=== PATIENT | male | born 1975 | race Caucasian/White ===

== ENCOUNTER 2016-06-03 22:20 | Emergency (ER) | payer OTHER ==
[2016-06-03] MEDS ORDERED: HYDROmorphone 1 MG/ML 1 ML SYRINGE IVP STA (23:14)
[2016-06-03] MEDS ORDERED: SODIUM CHLORIDE 0.9% 1,000 ML IV ONE (23:14)
--- NOTE | 2016-06-03 23:20 | ED ---
Abdominal Pain HPI - General Chief Complaint: Abdominal Pain Stated Complaint: Abdominal Pain Time Seen by Provider: 06/03/16 22:39 Source: patient, RN notes reviewed Mode of arrival: ambulatory Limitations: no limitations - History of Present Illness Initial Comments: Patient is a 41-year-old male presents to the emergency room for evaluation of abdominal pain. Patient states abdominal pain began around 8 PM while he was lying in bed. Patient states having constant sharp 10 out of 10 right upper quadrant/epigastric pain. Patient denies nausea or vomiting. Patient states been having diarrhea ever since the pain began. Patient denies history of colitis or Crohn's disease. Patient does state he has a history of IBS. Patient states the pain feels somewhat similar. Patient's fevers or chills. Patient denies headache or dizziness. Patient denies flank pain. Patient denies pain or burning during urination, trouble urinating or blood in urine. Patient does admit he has blood in stools states he has a rectal prolapse which he is due to have surgery for. Patient also admits that he had 3 "tall" beers earlier this evening to help pain. - Related Data Home Medications Medication Instructions Recorded Confirmed Albuterol Nebulized [Ventolin 2.5 mg INHALATION RT-Q6H PRN 05/12/15 06/03/16 Nebulized] Albuterol Sulfate [Proair Hfa] 1 - 2 puff INHALATION RT-Q6H PRN 05/12/15 Lisinopril-Hctz 20-25 mg 1 tab PO DAILY 05/12/15 06/03/16 [Zestoretic 20-25] Beclomethasone Dipropionate [Qvar 2 puff INHALATION RT-BID 01/06/16 06/03/16 80 mcg/puff] Dicyclomine [Bentyl] 10 mg PO AC-TID 01/06/16 06/03/16 Esomeprazole Magnesium [NexIUM] 40 mg PO DAILY 01/06/16 06/03/16 Fish Oil/Dha/Epa [Fish Oil 1,200 1 cap PO DAILY 01/06/16 06/03/16 mg Fish Oil] HYDROcodone/APAP 7.5-325MG [[place] 1 - 2 tab PO Q4H PRN 01/06/16 06/03/16 7.5-325] Multivitamins, Thera [Multivitamin] 1 tab PO DAILY 01/06/16 06/03/16 Ondansetron HCl 8 mg PO Q8H PRN 01/06/16 06/03/16 Allergies Allergy/AdvReac Type Severity Reaction Status Date / Time sulfamethoxazole AdvReac Nausea & Verified 06/03/16 22:27 [From Bactrim] Vomiting trimethoprim [From Bactrim] AdvReac Nausea & Verified 06/03/16 22:27 Vomiting Review of Systems ROS Statement: Those systems with pertinent positive or pertinent negative responses have been documented in the HPI. ROS Other: All systems not noted in ROS Statement are negative. Past Medical History Past Medical History: COPD, GERD/Reflux, Hypertension Additional Past Medical History / Comment(s): Other hx: herniated disc, recovered alcoholic. pt stated having diarrhea (like bile and at times mucousy) at times can goe up to 10 times a day" History of Any Multi-Drug Resistant Organisms: None Reported Past Surgical History: Back Surgery, Orthopedic Surgery Additional Past Surgical History / Comment(s): 06/02/15 Far lateral lumbar laminectomy discectomy with METRX left L4-5. Other surgeries: arthroscopy knee, arthroscopy left shoulder x 2, right foot surg. Past Anesthesia/Blood Transfusion Reactions: Previous Problems w/ Anesthesia Additional Past Anesthesia/Blood Transfusion Reaction / Comment(s): had difficulty breathing when coming out of anesthesia(TWICE) Past Psychological History: No Psychological Hx Reported Additional Psychological History / Comment(s): Pt resides with his spouse and 2 of his children. He is independent. He does not drive-his spouse does. He uses no assistive device. 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 15, down from 1 ppd to 3/4 ppd Past Drug Use History: Marijuana Additional Drug Use History / Comment(s): quit late 20's or early thrities - Past Family History Mother Family Medical History: No Reported History Additional Family Medical History / Comment(s): Mother is healthy Father Family Medical History: No Reported History Additional Family Medical History / Comment(s): Father is healthy General Exam - General Exam Comments Initial Comments: Laying in exam room, no acute distress Limitations: no limitations General appearance: alert, in no apparent distress Head exam: Present: atraumatic, normocephalic, normal inspection Eye exam: Present: normal appearance ENT exam: Present: normal exam Neck exam: Present: normal inspection Respiratory exam: Present: normal lung sounds bilaterally. Absent: respiratory distress Cardiovascular Exam: Present: regular rate, normal rhythm, normal heart sounds GI/Abdominal exam: Present: soft, tenderness (RUQ), normal bowel sounds. Absent : distended, guarding, rebound, rigid Extremities exam: Present: normal inspection Back exam: Present: normal inspection Neurological exam: Present: alert, oriented X3, CN II-XII intact, normal gait Psychiatric exam: Present: normal affect, normal mood Skin exam: Present: warm, dry, intact, normal color. Absent: rash Course Vital Signs 06/03/16 06/04/16 06/04/16 22:25 00:09 01:51 Temperature 97.9 F 97.7 F 99.4 F Pulse Rate 115 H 101 H 94 Respiratory 20 20 18 Rate Blood Pressure 127/88 139/81 130/64 O2 Sat by Pulse 98 98 97 Oximetry Medical Decision Making - Medical Decision Making Patient is a 41-year-old male presents emergency room for evaluation of abdominal pain. Labs showed no significant findings. CT shows no acute findings. Patient's serum alcohol 278. Discussed with patient to discontinue drinking alcohol and to follow-up with GI specialist symptoms are persisting. Patient states he understands everything that was discussed with him. Return parameters discussed. Case discussed with Dr. Chatterjee. - Lab Data Result diagrams: 06/03/16 22:24 06/03/16 22:24 Lab Results 06/03/16 06/03/16 06/03/16 Range/Units 22:24 22:24 22:24 WBC 5.3 (3.8-10.6) k/uL RBC 3.53 L (4.30-5.90) m/uL Hgb 9.0 L (13.0-17.5) gm/dL Hct 28.6 L (39.0-53.0) % MCV 81.1 (80.0-100.0) fL MCH 25.5 (25.0-35.0) pg MCHC 31.4 (31.0-37.0) g/dL RDW 17.4 H (11.5-15.5) % Plt Count 319 (150-450) k/uL Neutrophils % 52 % Lymphocytes % 33 % Monocytes % 5 % Eosinophils % 6 % Basophils % 1 % Neutrophils # 2.7 (1.3-7.7) k/uL Lymphocytes # 1.7 (1.0-4.8) k/uL Monocytes # 0.3 (0-1.0) k/uL Eosinophils # 0.3 (0-0.7) k/uL Basophils # 0.0 (0-0.2) k/uL Hypochromasia Moderate Anisocytosis Slight Sodium 136 L (137-145) mmol/L Potassium 4.2 (3.5-5.1) mmol/L Chloride 100 (98-107) mmol/L Carbon Dioxide 22 (22-30) mmol/L Anion Gap 14 mmol/L BUN 11 (9-20) mg/dL Creatinine 1.30 H (0.66-1.25) mg/dL Est GFR (MDRD) Af Amer >60 (>60 ml/min/1.73 sqM) Est GFR (MDRD) Non-Af >60 (>60 ml/min/1.73 sqM) Glucose 88 (74-99) mg/dL Calcium 9.2 (8.4-10.2) mg/dL Magnesium 2.1 (1.6-2.3) mg/dL Total Bilirubin 0.4 (0.2-1.3) mg/dL AST 44 (17-59) U/L ALT 50 (21-72) U/L Alkaline Phosphatase 70 (38-126) U/L Total Protein 7.8 (6.3-8.2) g/dL Albumin 4.6 (3.5-5.0) g/dL Amylase 79 (30-110) U/L Lipase 180 (23-300) U/L Urine Color Light Yellow Urine Appearance Clear (Clear) Urine pH 5.5 (5.0-8.0) Ur Specific [place] 1.004 (1.001-1.035) Urine Protein Negative (Negative) Urine Glucose (UA) Negative (Negative) Urine Ketones Negative (Negative) Urine Blood Negative (Negative) Urine Nitrate Negative (Negative) Urine Bilirubin Negative (Negative) Urine Urobilinogen <2.0 (<2.0) mg/dL Ur Leukocyte Esterase Negative (Negative) Urine Opiates Screen (NotDetected) Ur Oxycodone Screen (NotDetected) Urine Methadone Screen (NotDetected) Ur Propoxyphene Screen (NotDetected) Ur Barbiturates Screen (NotDetected) U Tricyclic Antidepress (NotDetected) Ur Phencyclidine Scrn (NotDetected) Ur Amphetamines Screen (NotDetected) U Methamphetamines Scrn (NotDetected) U Benzodiazepines Scrn (NotDetected) Urine Cocaine Screen (NotDetected) U Marijuana (THC) Screen (NotDetected) Serum Alcohol mg/dL 06/03/16 06/03/16 Range/Units 22:24 23:24 WBC (3.8-10.6) k/uL RBC (4.30-5.90) m/uL Hgb (13.0-17.5) gm/dL Hct (39.0-53.0) % MCV (80.0-100.0) fL MCH (25.0-35.0) pg MCHC (31.0-37.0) g/dL RDW (11.5-15.5) % Plt Count (150-450) k/uL Neutrophils % % Lymphocytes % % Monocytes % % Eosinophils % % Basophils % % Neutrophils # (1.3-7.7) k/uL Lymphocytes # (1.0-4.8) k/uL Monocytes # (0-1.0) k/uL Eosinophils # (0-0.7) k/uL Basophils # (0-0.2) k/uL Hypochromasia Anisocytosis Sodium (137-145) mmol/L Potassium (3.5-5.1) mmol/L Chloride (98-107) mmol/L Carbon Dioxide (22-30) mmol/L Anion Gap mmol/L BUN (9-20) mg/dL Creatinine (0.66-1.25) mg/dL Est GFR (MDRD) Af Amer (>60 ml/min/1.73 sqM) Est GFR (MDRD) Non-Af (>60 ml/min/1.73 sqM) Glucose (74-99) mg/dL Calcium (8.4-10.2) mg/dL Magnesium (1.6-2.3) mg/dL Total Bilirubin (0.2-1.3) mg/dL AST (17-59) U/L ALT (21-72) U/L Alkaline Phosphatase (38-126) U/L Total Protein (6.3-8.2) g/dL Albumin (3.5-5.0) g/dL Amylase (30-110) U/L Lipase (23-300) U/L Urine Color Urine Appearance (Clear) Urine pH (5.0-8.0) Ur Specific [place] (1.001-1.035) Urine Protein (Negative) Urine Glucose (UA) (Negative) Urine Ketones (Negative) Urine Blood (Negative) Urine Nitrate (Negative) Urine Bilirubin (Negative) Urine Urobilinogen (<2.0) mg/dL Ur Leukocyte Esterase (Negative) Urine Opiates Screen Detected H (NotDetected) Ur Oxycodone Screen Not Detected (NotDetected) Urine Methadone Screen Not Detected (NotDetected) Ur Propoxyphene Screen Not Detected (NotDetected) Ur Barbiturates Screen Not Detected (NotDetected) U Tricyclic Antidepress Not Detected (NotDetected) Ur Phencyclidine Scrn Not Detected (NotDetected) Ur Amphetamines Screen Not Detected (NotDetected) U Methamphetamines Scrn Not Detected (NotDetected) U Benzodiazepines Scrn Not Detected (NotDetected) Urine Cocaine Screen Not Detected (NotDetected) U Marijuana (THC) Screen Not Detected (NotDetected) Serum Alcohol 278 mg/dL - Radiology Data Radiology results: report reviewed, image reviewed Disposition Clinical Impression: Abdominal pain, Alcohol intoxication Disposition: HOME SELF-CARE Condition: Good Instructions: Abdominal Pain (ED) Additional Instructions: Drink plenty of water. Continue taking medications at home. Please follow up with GI specialist for further evaluation. If any new symptom arises, symptoms worsen or fever develops, return to ER as soon as possible. Referrals: Dhruv Hernandez MD [Primary Care Provider] - 1-2 days Arcelia Resendez MD [STAFF PHYSICIAN] - 1-2 days Time of Disposition: 01:31
[2016-06-03 23:41] LABS: Anisocytosis Slight; Basophils % (A) 1 %; CH 25.1; Eosinophils # (A) 0.3 k/uL (0-0.7); Eosinophils % (A) 6 %; HCT 28.6 % (39.0-53.0); HDW 3.17; Hypochromasia Moderate; Luc % (Auto) 4; Lymphocytes # (A) 1.7 k/uL (1.0-4.8); Lymphocytes % (A) 33 %; MCH 25.5 pg (25.0-35.0); MCHC 31.4 g/dL (31.0-37.0); MCV 81.1 fL (80.0-100.0); Mean Platelet Volume 6.4; Monocytes # (A) 0.3 k/uL (0-1.0); Monocytes % (A) 5 %; Neutrophils # (A) 2.7 k/uL (1.3-7.7); Neutrophils % (A) 52 %; RBC 3.53 m/uL (4.30-5.90); RDW 17.4 % (11.5-15.5); WBC 5.3 k/uL (3.8-10.6); WBC (Perox) 5.49
[2016-06-03 23:42] LABS: Appearance,Urine Clear (Clear); Bilirubin,Urine Negative (Negative); Glucose,Urine (UA) Negative (Negative); Ketones,Urine Negative (Negative); Leukocyte Esterase,Urine Negative (Negative); Nitrite,Urine Negative (Negative); PH, Urine 5.5 (5.0-8.0); Protein,Urine Negative (Negative); Specific Gravity,Urine 1.004 (1.001-1.035); UA Billing (MACRO vs. MICRO) CHEM; Urobilinogen,Urine <2.0 mg/dL (<2.0)
[2016-06-03 23:52] LABS: ALT 50 U/L (21-72); AST 44 U/L (17-59); Alkaline Phosphatase 70 U/L (38-126); Amylase 79 U/L (30-110); Anion Gap 14 mmol/L; Blood Urea Nitrogen 11 mg/dL (9-20); Calcium 9.2 mg/dL (8.4-10.2); Carbon Dioxide 22 mmol/L (22-30); Chloride 100 mmol/L (98-107); Glucose 88 mg/dL (74-99); Magnesium 2.1 mg/dL (1.6-2.3); Non-African American GFR(MDRD) >60 (>60 ml/min/1.73 sqM); Potassium 4.2 mmol/L (3.5-5.1); Sodium 136 mmol/L (137-145); Total Bilirubin 0.4 mg/dL (0.2-1.3); Total Protein 7.8 g/dL (6.3-8.2)
--- NOTE | 2016-06-03 23:59 | XR ---
EXAMINATION TYPE: XR KUB DATE OF EXAM: 06/03/2016 11:54 PM COMPARISON: 07/28/2012 abdominal pain HISTORY: Abdominal pain TECHNIQUE: 2 views FINDINGS: Bowel gas pattern is normal. There is no sign of intestinal obstruction or pneumoperitoneum . Fecal pattern is normal. There are phleboliths in the pelvis. Lung bases are clear. IMPRESSION: Nonacute abdomen. No change.
[2016-06-04] MEDS ORDERED: FAMOTIDINE 20 MG/2 ML VIAL IV STA (00:11)
[2016-06-04] MEDS ORDERED: DICYCLOMINE 20 MG TAB PO STA (00:12)
[2016-06-04] MEDS ORDERED: RX INFO: IV CONTRAST WAS GIVEN 1 EACH MISC MISCELLANE PRN (00:12)
[2016-06-04] MEDS ORDERED: HYDROmorphone 1 MG/ML 1 ML SYRINGE IVP STA (00:58)
--- NOTE | 2016-06-04 01:12 | CT ---
EXAMINATION TYPE: CT abdomen pelvis w con DATE OF EXAM: 06/04/2016 1:02 AM COMPARISON: NONE HISTORY: abd pain with diarrhea x1 day CT DLP: 987.00 mGycm Automated exposure control for dose reduction was used. TECHNIQUE: Helical acquisition of images was performed from the lung bases through the pelvis. CONTRAST: Performed without Oral Contrast and with IV Contrast, patient injected with 100 mL of Omnipaque 300. FINDINGS: The lung bases are clear. There is no pleural effusion. Heart size is normal. Liver spleen pancreas g allbladder appear normal. Bile ducts are not dilated. There is no adrenal mass. Kidneys have normal s ize and contour. There is normal contrast opacification. There is no hydronephrosis. Ureters are not dilated. There is no retroperitoneal adenopathy. There is no ascites. There are a few sigmoid diverti cula. There is no sign of diverticulitis. Bladder distends smoothly. The appendix appears normal. I s ee no intestinal wall thickening. There is no sign of a bowel obstruction. The bony structures appear intact. IMPRESSION: NEGATIVE CT SCAN OF THE ABDOMEN AND PELVIS. THERE IS CLEARING OF THE INFLAMMATORY CHANGES AROUND THE FIRST PART OF THE DUODENUM AND ANTERIOR TO THE RIGHT KIDNEY COMPARED TO OLD CT SCAN. I DO NOT SEE NANCIE DENCE OF PANCREATITIS.
[2016-06-04] MEDS ORDERED: MAG HYDROX/AL HYDROX/SIMETH 30 ML, HYOSCYAMINE ELIXIR 10 ML, CIMETIDINE HCL 300 MG, LID... PO STA ×4 (01:30)
[2016-06-04 01:54] VITALS: BP 130/64; PULSE 94; RESP 18; TEMP 99.4
== END 2016-06-04 01:55 | disposition home or self-care (01) ==
LOC: EC 22:20
DX: R10.11 Right upper quadrant pain (principal); F10.129 Alcohol abuse with intoxication, unspecified; K92.1 Melena; R19.7 Diarrhea, unspecified; K21.9 Gastro-esophageal reflux disease without esophagitis; K58.9 Irritable bowel syndrome, unspecified; I10 Essential (primary) hypertension; J44.9 Chronic obstructive pulmonary disease, unspecified; F17.200 Nicotine dependence, unspecified, uncomplicated; Z79.899 Other long term (current) drug therapy; Z88.1 Allergy status to other antibiotic agents
CPT/HCPCS: 99284; 96374; 96375; 96361; 36415; 80053; 82150; 83690; 83735; 85025; 81003; 80306; 80320; 74000; 74177; J1170; Q9967

== ENCOUNTER 2016-06-14 08:38 | Day surgery (SDC) | payer OTHER ==
[2016-06-13 08:50] VITALS: BMI 22.2
[~2016-06-14 08:38] MED LIST: DEXAMETHASONE SOD PHOSPHATE 10 MG/ML 1 ML VIAL IV ONE; LACTATED RINGERS 1,000 ML IV SCH; LIDOCAINE 1% 20 ML VIAL (10MG/ML) FOR IV START INTRADERMA PRN; MIDAZOLAM 2 MG/2 ML VIAL IV PRN; Pre Op ABX Message 1 EACH MISC MISCELLANE ONE; SCOPOLAMINE 1.5MG/72HR PATCH TRANSDERM ONE
[2016-06-14] MEDS: ONDANSETRON 4 MG/2 ML VIAL IVP ONE ×2 (09:02→11:16)
[2016-06-14] MEDS ORDERED: NA PHOS,M-B/NA PHOS,DI-BA 133 ML ENEMA RECTAL STA (09:31)
[2016-06-14] MEDS ORDERED: NA PHOS,M-B/NA PHOS,DI-BA 133 ML ENEMA RECTAL ONE (09:31)
[2016-06-14] MEDS ORDERED: MIDAZOLAM 2 MG/2 ML VIAL IV ONE (10:03)
[2016-06-14] MEDS ORDERED: ALBUTEROL NEBULIZED 2.5 MG/3 ML INHALATION STA (10:25)
[2016-06-14] MEDS ORDERED: PROPOFOL 10 MG/ML 20 ML VIAL IV ONE (10:31)
[2016-06-14] MEDS ORDERED: HYDROmorphone (PF) 1 MG/ML ONE (10:31)
[2016-06-14] MEDS ORDERED: LIDOCAINE 1% INJ 10MG/ML (20 ML MDV) ONE (10:31)
[2016-06-14] MEDS ORDERED: MIDAZOLAM 2 MG/2 ML VIAL ONE (10:31)
[2016-06-14] MEDS ORDERED: fentaNYL (PF) 50 MCG/ML 2 ML AMP ONE (10:31)
[2016-06-14] MEDS ORDERED: KETAMINE 10 MG/ML 20 ML VIAL ONE (10:31)
[2016-06-14] MEDS ORDERED: GLYCOPYRROLATE 0.2 MG/ML 2 ML VIAL ONE (10:31)
[2016-06-14] MEDS ORDERED: BUPIVACAIN-EPI 0.25%-1:200,000 30 ML VIAL SQ ONE ×2 (10:48)
--- NOTE | 2016-06-14 11:11 | P.OP ---
Date of Procedure: 06/14/16 Preoperative Diagnosis: Large bleeding prolapsing internal hemorrhoids grade 3 Postoperative Diagnosis: Same Procedure(s) Performed: Internal hemorrhoidectomy with the Harmonic scalpel Anesthesia: MAC Surgeon: Manuel Lind Estimated Blood Loss (ml): 5 Pathology: other (Hemorrhoids) Condition: stable Disposition: PACU Indications for Procedure: The patient is a 41-year-old white male with large prolapsing very friable internal hemorrhoids the the the associated with a lot of pain and bleeding burning anemia requiring manual reduction. Hemorrhoidectomy was recommended and informed consent was obtained procedure have been explained to him including potential complications particular bleeding infection recurrence pain leakage etc. his sphincter tone was a little on the weak side the prior to surgery. Operative Findings: Large friable internal hemorrhoids circumferential. Description of Procedure: With the patient in the prone jackknife position the buttocks were taped apart and the area was prepped with Betadine and draped. Visual expiration with an anal retractor confirmed a large prolapsing internal hemorrhoids that were quite protuberant when the with the patient in the relaxed position under sedation. A perianal block was performed with the Marcaine 0.5% with epinephrine circumferentially around the anal orifices and as well as into the submucosal tissues. The large hemorrhoidal bundle at the 9 o'clock position in the left lateral side was first removed. The hemorrhoidal bundle was grasped with an Allis clamp right at the anal orifice opening and excised with an oval- shaped incision using the Harmonic scalpel. The base of the hemorrhoid was suture ligated with 3-0 Vicryl and the hemorrhoid excised. The hemorrhoidal bundles at the 1:00 and 5 o'clock position on the right side was similarly excised with good hemostasis. Dressings were applied FOR correct. The patient remained stable was transferred to the recovery room in good and stable condition. He is discharged home on a high-fiber diet stool softener daily 7.5 one every 4- 6 hours when necessary for pain. history removed the dressings tomorrow morning to take sitz baths 3-4 times a day. follow-up in the office in about a week. Plan - Discharge Summary Discharge Medication List Albuterol Nebulized [Ventolin Nebulized] 2.5 mg INHALATION RT-Q6H PRN 05/12/15 [ History] Albuterol Sulfate [Proair Hfa] 1 - 2 puff INHALATION RT-Q6H PRN 05/12/15 [ History] Lisinopril-Hctz 20-25 mg [Zestoretic 20-25] 1 tab PO DAILY 05/12/15 [History] Beclomethasone Dipropionate [Qvar 80 mcg/puff] 2 puff INHALATION RT-BID [History] Dicyclomine [Bentyl] 10 mg PO AC-TID 01/06/16 [History] Fish Oil/Dha/Epa [Fish Oil 1,200 mg Fish Oil] 1 cap PO DAILY 01/06/16 [History] HYDROcodone/APAP 7.5-325MG [[place] 7.5-325] 1 - 2 tab PO Q4H PRN 01/06/16 [ History] Multivitamins, Thera [Multivitamin] 1 tab PO DAILY 01/06/16 [History] Esomeprazole Magnesium [NexIUM] 20 mg PO DAILY 06/14/16 [History]
[2016-06-14 11:14] VITALS: TEMP 98.8
[2016-06-14] MEDS: HYDROmorphone 1 MG/ML 1 ML SYRINGE IVP PRN ×4 (11:16→11:26)
[2016-06-14] MEDS: MEPERIDINE 50 MG/ML SYRINGE IVP ONE ×2 (11:29→11:34)
[2016-06-14] MEDS ORDERED: LACTATED RINGERS 1,000 ML IV ONE (12:03)
[2016-06-14] MEDS ORDERED: HYDROcodone/APAP 7.5-325MG 1 EACH TAB PO ONE (12:17)
[2016-06-14 12:23] VITALS: BP 128/90; PULSE 120; RESP 16
== END 2016-06-14 12:46 | disposition home or self-care (01) ==
LOC: OR 08:38
PROVIDERS: ATTEND Surgery
DX: K64.2 Third degree hemorrhoids (principal); D64.9 Anemia, unspecified; I10 Essential (primary) hypertension; J44.9 Chronic obstructive pulmonary disease, unspecified; J45.909 Unspecified asthma, uncomplicated; F17.200 Nicotine dependence, unspecified, uncomplicated; K21.9 Gastro-esophageal reflux disease without esophagitis; Z79.891 Long term (current) use of opiate analgesic; Z79.51 Long term (current) use of inhaled steroids; Z79.899 Other long term (current) drug therapy; Z88.2 Allergy status to sulfonamides
CPT/HCPCS: 88304; 46930; J2250; J1100; J2175; J2405; J2001; J3010; J1170; J2704

== ENCOUNTER 2017-05-21 10:32 | Emergency (ER) | payer OTHER ==
[2017-05-21 10:38] VITALS: RESP 18
[2017-05-21] MEDS ORDERED: KETOROLAC 30 MG/ML 1 ML VIAL IVP STA (11:04)
[2017-05-21] MEDS ORDERED: IPRATROPIUM-ALBUTEROL 3 ML NEB INHALATION STA (11:04)
--- NOTE | 2017-05-21 11:07 | ED ---
General Adult HPI - General Chief complaint: Chest Pain Stated complaint: Chest pain Time Seen by Provider: 05/21/17 10:49 Source: patient, RN notes reviewed, old records reviewed Mode of arrival: ambulatory Limitations: no limitations - History of Present Illness Initial comments: 42-year-old male history of asthma COPD presents with central chest pain. Pain is described as sharp and stabbing in nature. His been worse in the mornings for the past 2 days. Initially began yesterday morning. Patient states this improved throughout the day. He went to work with no significant pain. Denies exertional chest pain. Patient does have mild shortness of breath and cough which is unchanged from his baseline. He has history of COPD. He is a current smoker. Patient states he did have some mild nausea associated with the pain. No significant vomiting. No diaphoresis. No history of CAD. Additional past medical history of gastric reflux and irritable bowel syndrome. No diabetes or hypertension. - Related Data Home Medications Medication Instructions Recorded Confirmed Albuterol Sulfate [Proair Hfa] 1 - 2 puff INHALATION RT-Q6H PRN 05/12/15 Beclomethasone Dipropionate [Qvar 2 puff INHALATION RT-BID 01/06/16 05/21/17 80 mcg/puff] Esomeprazole Magnesium [NexIUM] 40 mg PO DAILY 06/14/16 05/21/17 Diphenoxylate HCl/Atropine 1 tab PO BID PRN 05/21/17 05/21/17 [Lomotil 2.5-0.025 mg Tablet] Previous Rx's Medication Instructions Recorded Ibuprofen [Motrin] 600 mg PO Q8HR PRN #24 tab 05/21/17 Allergies Allergy/AdvReac Type Severity Reaction Status Date / Time sulfamethoxazole AdvReac Nausea & Verified 05/21/17 11:07 [From Bactrim] Vomiting trimethoprim [From Bactrim] AdvReac Nausea & Verified 05/21/17 11:07 Vomiting Review of Systems ROS Statement: Those systems with pertinent positive or pertinent negative responses have been documented in the HPI. ROS Other: All systems not noted in ROS Statement are negative. Past Medical History Past Medical History: COPD, GERD/Reflux Additional Past Medical History / Comment(s): Other hx: herniated disc, recovered alcoholic. pt stated having diarrhea (like bile and at times mucousy) at times can goe up to 10 times a day" ibs History of Any Multi-Drug Resistant Organisms: None Reported Past Surgical History: Back Surgery, Orthopedic Surgery Additional Past Surgical History / Comment(s): 06/02/15 Far lateral lumbar laminectomy discectomy with METRX left L4-5. Other surgeries: arthroscopy knee, arthroscopy left shoulder x 2, right foot surg. rectal Past Anesthesia/Blood Transfusion Reactions: Previous Problems w/ Anesthesia Additional Past Anesthesia/Blood Transfusion Reaction / Comment(s): had difficulty breathing when coming out of anesthesia(TWICE) Past Psychological History: No Psychological Hx Reported Smoking Status: Current every day smoker Past Alcohol Use History: Daily - Past Family History Mother Family Medical History: No Reported History Additional Family Medical History / Comment(s): Mother is healthy Father Family Medical History: No Reported History Additional Family Medical History / Comment(s): Father is healthy General Exam Limitations: no limitations General appearance: alert, in no apparent distress Head exam: Present: atraumatic, normocephalic Eye exam: Present: normal appearance, PERRL ENT exam: Present: normal exam Neck exam: Present: normal inspection. Absent: tenderness, meningismus Respiratory exam: Present: wheezes. Absent: respiratory distress Cardiovascular Exam: Present: regular rate, normal rhythm. Absent: rubs GI/Abdominal exam: Present: soft. Absent: distended, tenderness, guarding Extremities exam: Present: normal inspection, normal capillary refill. Absent: pedal edema Neurological exam: Present: alert, oriented X3, CN II-XII intact, motor sensory deficit Psychiatric exam: Present: normal affect, normal mood Skin exam: Present: warm, dry, intact. Absent: cyanosis, diaphoretic Course Vital Signs 05/21/17 05/21/17 05/21/17 10:34 11:01 11:13 Temperature 97.4 F L Pulse Rate 77 76 Pulse Rate [ 65 Marketing Automation Analyst ] Respiratory 18 Rate Blood Pressure 137/86 O2 Sat by Pulse 99 Oximetry 05/21/17 05/21/17 05/21/17 11:21 11:37 12:40 Temperature Pulse Rate 71 77 68 Pulse Rate [ Marketing Automation Analyst ] Respiratory 18 18 Rate Blood Pressure 126/65 134/60 O2 Sat by Pulse 98 96 Oximetry EKG Findings - EKG Comments: EKG Findings:: EKG shows normal sinus rhythm, ventricular rate 68, [place] interval 122, castration 98, QTC 4:15, no signs of ischemia or infarction Medical Decision Making - Medical Decision Making 42-year-old male presenting for evaluation of chest pain. Patient pain is atypical for cardiac pain. EKG nonischemic. Chest x-rays obtained negative for acute findings. Laboratory studies reveal normal white blood cell count 5.9 , hemoglobin 11.6 which is improved from previous, d-dimer is elevated and CT angiography is obtained, this is negative for PE or acute findings. I to normal limits. Patient's pain is improved on reevaluation. Discharged with outpatient follow-up. - Lab Data Result diagrams: 05/21/17 10:49 05/21/17 10:49 Lab Results 05/21/17 05/21/17 05/21/17 Range/Units 10:49 10:49 10:49 WBC 5.9 (3.8-10.6) k/uL RBC 4.48 (4.30-5.90) m/uL Hgb 11.6 L (13.0-17.5) gm/dL Hct 37.2 L (39.0-53.0) % MCV 83.0 (80.0-100.0) fL MCH 25.8 (25.0-35.0) pg MCHC 31.1 (31.0-37.0) g/dL RDW 18.2 H (11.5-15.5) % Plt Count 286 (150-450) k/uL Neutrophils % 79 % Lymphocytes % 10 % Monocytes % 5 % Eosinophils % 3 % Basophils % 0 % Neutrophils # 4.6 (1.3-7.7) k/uL Lymphocytes # 0.6 L (1.0-4.8) k/uL Monocytes # 0.3 (0-1.0) k/uL Eosinophils # 0.2 (0-0.7) k/uL Basophils # 0.0 (0-0.2) k/uL Hypochromasia Slight Anisocytosis Slight PT (9.0-12.0) sec INR (<1.2) APTT (22.0-30.0) sec D-Dimer (<0.60) mg/L FEU Sodium 141 (137-145) mmol/L Potassium 4.6 (3.5-5.1) mmol/L Chloride 105 (98-107) mmol/L Carbon Dioxide 24 (22-30) mmol/L Anion Gap 12 mmol/L BUN 13 (9-20) mg/dL Creatinine 0.96 (0.66-1.25) mg/dL Est GFR (MDRD) Af Amer >60 (>60 ml/min/1.73 sqM) Est GFR (MDRD) Non-Af >60 (>60 ml/min/1.73 sqM) Glucose 105 H (74-99) mg/dL Calcium 10.1 (8.4-10.2) mg/dL Magnesium 1.7 (1.6-2.3) mg/dL Total Bilirubin 0.5 (0.2-1.3) mg/dL AST 48 (17-59) U/L ALT 44 (21-72) U/L Alkaline Phosphatase 94 (38-126) U/L Total Creatine Kinase 201 H (55-170) U/L CK-MB (CK-2) 1.4 (0.0-2.4) ng/mL CK-MB (CK-2) Rel Index 0.7 Troponin I <0.012 (0.000-0.034) ng/mL NT-Pro-B Natriuret Pep pg/mL Total Protein 7.7 (6.3-8.2) g/dL Albumin 4.6 (3.5-5.0) g/dL Amylase 86 (30-110) U/L Lipase 161 (23-300) U/L 05/21/17 05/21/17 Range/Units 10:49 10:49 WBC (3.8-10.6) k/uL RBC (4.30-5.90) m/uL Hgb (13.0-17.5) gm/dL Hct (39.0-53.0) % MCV (80.0-100.0) fL MCH (25.0-35.0) pg MCHC (31.0-37.0) g/dL RDW (11.5-15.5) % Plt Count (150-450) k/uL Neutrophils % % Lymphocytes % % Monocytes % % Eosinophils % % Basophils % % Neutrophils # (1.3-7.7) k/uL Lymphocytes # (1.0-4.8) k/uL Monocytes # (0-1.0) k/uL Eosinophils # (0-0.7) k/uL Basophils # (0-0.2) k/uL Hypochromasia Anisocytosis PT 9.9 (9.0-12.0) sec INR 1.0 (<1.2) APTT 24.7 (22.0-30.0) sec D-Dimer 0.91 H (<0.60) mg/L FEU Sodium (137-145) mmol/L Potassium (3.5-5.1) mmol/L Chloride (98-107) mmol/L Carbon Dioxide (22-30) mmol/L Anion Gap mmol/L BUN (9-20) mg/dL Creatinine (0.66-1.25) mg/dL Est GFR (MDRD) Af Amer (>60 ml/min/1.73 sqM) Est GFR (MDRD) Non-Af (>60 ml/min/1.73 sqM) Glucose (74-99) mg/dL Calcium (8.4-10.2) mg/dL Magnesium (1.6-2.3) mg/dL Total Bilirubin (0.2-1.3) mg/dL AST (17-59) U/L ALT (21-72) U/L Alkaline Phosphatase (38-126) U/L Total Creatine Kinase (55-170) U/L CK-MB (CK-2) (0.0-2.4) ng/mL CK-MB (CK-2) Rel Index Troponin I (0.000-0.034) ng/mL NT-Pro-B Natriuret Pep 53 pg/mL Total Protein (6.3-8.2) g/dL Albumin (3.5-5.0) g/dL Amylase (30-110) U/L Lipase (23-300) U/L Disposition Clinical Impression: Chest pain Disposition: HOME SELF-CARE Condition: Good Instructions: Chest Pain (ED) Prescriptions: Ibuprofen [Motrin] 600 mg PO Q8HR PRN #24 tab PRN Reason: Pain Referrals: Dunia Crocker MD [Primary Care Provider] - 1-2 days Time of Disposition: 13:03
[2017-05-21 11:20] LABS: Anisocytosis Slight; Basophils % (A) 0 %; Eosinophils # (A) 0.2 k/uL (0-0.7); Eosinophils % (A) 3 %; HCT 37.2 % (39.0-53.0); HGB 11.6 gm/dL (13.0-17.5); Hypochromasia Slight; Lymphocytes # (A) 0.6 k/uL (1.0-4.8); Lymphocytes % (A) 10 %; MCH 25.8 pg (25.0-35.0); MCHC 31.1 g/dL (31.0-37.0); Mean Platelet Volume 6.6; Monocytes # (A) 0.3 k/uL (0-1.0); Monocytes % (A) 5 %; Neutrophils # (A) 4.6 k/uL (1.3-7.7); Neutrophils % (A) 79 %; Platelet Count 286 k/uL (150-450); RBC 4.48 m/uL (4.30-5.90); RDW 18.2 % (11.5-15.5); WBC 5.9 k/uL (3.8-10.6)
[2017-05-21 11:22] LABS: D-Dimer 0.91 mg/L FEU (<0.60)
[2017-05-21 11:26] LABS: Partial Thromboplastin Time 24.7 sec (22.0-30.0)
[2017-05-21 11:28] LABS: Prothrombin Time 9.9 sec (9.0-12.0)
[2017-05-21 11:29] LABS: ALT 44 U/L (21-72); AST 48 U/L (17-59); Albumin 4.6 g/dL (3.5-5.0); Alkaline Phosphatase 94 U/L (38-126); Amylase 86 U/L (30-110); Anion Gap 12 mmol/L; Blood Urea Nitrogen 13 mg/dL (9-20); Calcium 10.1 mg/dL (8.4-10.2); Carbon Dioxide 24 mmol/L (22-30); Chloride 105 mmol/L (98-107); Glucose 105 mg/dL (74-99); Lipase 161 U/L (23-300); Magnesium 1.7 mg/dL (1.6-2.3); Potassium 4.6 mmol/L (3.5-5.1); Sodium 141 mmol/L (137-145); Total Bilirubin 0.5 mg/dL (0.2-1.3); Total Protein 7.7 g/dL (6.3-8.2)
--- NOTE | 2017-05-21 11:36 | XR ---
EXAMINATION TYPE: XR chest 2V DATE OF EXAM: 05/21/2017 COMPARISON: Chest x-ray August 09, 2012 HISTORY: Chest pain and shortness of breath for one day. History of COPD. TECHNIQUE: Frontal and lateral views of the chest are obtained. FINDINGS: There is no focal air space opacity, pleural effusion, or pneumothorax seen. The cardiac silhouette size is within normal limits. The osseous structures are intact. IMPRESSION: No acute cardiopulmonary process. No significant change from prior study.
[2017-05-21 11:40] LABS: Creatine Kinase 201 U/L (55-170)
[2017-05-21] MEDS ORDERED: RX INFO: IV CONTRAST WAS GIVEN 1 EACH MISC MISCELLANE PRN (11:40)
[2017-05-21 11:53] LABS: Creatine Kinase MB 1.4 ng/mL (0.0-2.4); Troponin I <0.012 ng/mL (0.000-0.034)
--- NOTE | 2017-05-21 12:28 | CT ---
EXAMINATION TYPE: CT angio chest DATE OF EXAM: 05/21/2017 COMPARISON: NONE HISTORY: SOB, Lt upper chest pain CT DLP: 215 mGycm. Automated Exposure Control for Dose Reduction was Utilized. CONTRAST: CTA scan of the thorax is performed with IV Contrast, patient injected with 100 mL of Omnipaque 350, pulmonary embolism protocol. MIP Images are created on CT scanner and reviewed. FINDINGS: LUNGS: The lungs are grossly clear, there is no concerning parenchymal mass or nodule identified. T here is no pleural effusion or pneumothorax seen. The tracheobronchial tree is patent. MEDIASTINUM: There is satisfactory enhancement of the pulmonary artery and its branches, there is no CT evidence for pulmonary embolism. There are no greater than 1 cm hilar or mediastinal lymph nodes. No cardiomegaly or pericardial effusion is seen. Ascending thoracic aorta is within normal limits of size measuring 2.8 cm. OTHER: No additional significant abnormality is seen. IMPRESSION: No CT finding to correspond to the patient's left upper chest pain. No focal consolidation, pleural e ffusion or pneumothorax. No CT evidence of pulmonary embolus.
[2017-05-21 12:48] VITALS: BP 134/60; PULSE 68
[2017-05-21 13:22] VITALS: TEMP 98.8
== END 2017-05-21 13:22 | disposition home or self-care (01) ==
LOC: EC 10:32
DX: R07.89 Other chest pain (principal); R06.02 Shortness of breath; R05 Cough; J44.9 Chronic obstructive pulmonary disease, unspecified; K21.9 Gastro-esophageal reflux disease without esophagitis; K58.9 Irritable bowel syndrome, unspecified; F17.200 Nicotine dependence, unspecified, uncomplicated; Z79.51 Long term (current) use of inhaled steroids; Z79.899 Other long term (current) drug therapy; Z88.2 Allergy status to sulfonamides
CPT/HCPCS: 36415; 94640; 93005; 85379; 83880; 80053; 82150; 82550; 82553; 83690; 83735; 84484; 85025; 85610; 85730; 71046; 71275; 99285; 96374; Q9967; J1885

== ENCOUNTER → 2017-06-06 | Outpatient (CLI) | payer OTHER ==
--- NOTE | 2017-06-06 12:45 | EST ---
EXERCISE STRESS DATE OF SERVICE: 06/06/2017 AGE: 42 SEX: Male. HT: 69 WT: 155 PROTOCOL: BRYANT STAGE: III DURATION OF EXERCISE: 9:30 HEART RATE REST: 90 BLOOD PRESSURE REST: 132/69 MAXIMUM HEART RATE ACHIEVED: 152 MAXIMUM BLOOD PRESSURE: 163/70 85% MPHR: 151 100% MPHR: 178 METS: 11.1 INDICATIONS: Chest pain. CLINICAL INFORMATION: Baseline rhythm is sinus mechanism, rate of 90, normal axis and intervals. Minor nonspecific ST-T wave changes. Baseline blood pressure 132/69 mmHg. Patient exercise on Bryant protocol for 9 minutes 30 seconds, reaching peak rate of 152 beats per minute, which is equal to 85% maximum predicted heart rate. Peak blood pressure 163/70 mmHg. The test was terminated secondary to fatigue. There was no chest pain. Electrocardiograph monitoring revealed no evidence of diagnostic ischemic ST deviation. CONCLUSION: 1. Good exercise tolerance with no symptoms of chest pain. 2. Normal electrocardiograph response to exercise with no evidence of exercise-induced ischemia. MMODL / IJN: [id number] /
== END | disposition home or self-care (01) ==
LOC: RADNMMAIN 10:47
PROVIDERS: ATTEND Internal Medicine
DX: R07.9 Chest pain, unspecified (principal); Z88.2 Allergy status to sulfonamides
CPT/HCPCS: 93017

== ENCOUNTER 2018-08-28 14:23 | Emergency (ER) | payer OTHER ==
[2018-08-28 14:29] VITALS: TEMP 98.4
[2018-08-28] MEDS ORDERED: HYDROcodone/APAP 5-325MG 1 EACH TAB PO STA (15:05)
[2018-08-28] MEDS ORDERED: KETOROLAC 30 MG/ML 1 ML VIAL IM STA (15:05)
[2018-08-28] MEDS ORDERED: LIDOCAINE 5% PATCH TOPICAL STA (15:05)
--- NOTE | 2018-08-28 15:37 | XR ---
EXAMINATION TYPE: XR ribs RT w pa chest xray DATE OF EXAM: 08/28/2018 CLINICAL HISTORY: Chest and left-sided rib pain after fall injury several days ago. TECHNIQUE: Single frontal view of the chest is obtained. A frontal and oblique images right sided rib s are acquired. COMPARISON: Chest x-ray and CT May 21, 2017. FINDINGS: There is no focal air space opacity, pleural effusion, or pneumothorax seen. The cardiac silhouette size is within normal limits. The osseous structures are intact. Dedicated images right-sided ribs show no acute displaced fractures. Overlying soft tissue is unremar kable. IMPRESSION: 1. No acute cardiopulmonary process. 2. No acute displaced right-sided rib fractures are seen.
--- NOTE | 2018-08-28 15:52 | ED ---
General Adult HPI - General Chief complaint: Chest Pain Stated complaint: Fall-back/rib pain Time Seen by Provider: 08/28/18 15:00 Source: patient Mode of arrival: ambulatory Limitations: no limitations - History of Present Illness Initial comments: 43-year-old male patient presents to the emergency department today for evaluation of right posterior rib pain. Patient states that last Saturday he slipped in the shower and fell hitting his ribs on the tub. Patient states since that time he's been having significant pain to the right posterior ribs. Patient states that makes it difficult to breathe her cough. Patient states that he has been working and does carry 20 pound loads which seems very difficult with the pain. He denies any cough or hemoptysis. Denies any fevers or chills with this. Denies any other injuries. Patient denies any headache, neck pain, dizziness, weakness, abdominal pain, nausea, vomiting, or difficulties with bowel movements or urination. - Related Data Home Medications Medication Instructions Recorded Confirmed Albuterol Sulfate [Proair Hfa] 1 - 2 puff INHALATION RT-Q6H PRN 05/12/15 05/21/17 Beclomethasone Dipropionate [Qvar 2 puff INHALATION RT-BID 01/06/16 05/21/17 80 mcg/puff] Esomeprazole Magnesium [NexIUM] 40 mg PO DAILY 06/14/16 05/21/17 Diphenoxylate HCl/Atropine 1 tab PO BID PRN 05/21/17 05/21/17 [Lomotil 2.5-0.025 mg Tablet] Previous Rx's Medication Instructions Recorded Ibuprofen [Motrin] 600 mg PO Q8HR PRN #24 tab 05/21/17 Hydrocodone/Acetaminophen [Amanda 1 tab PO Q6HR PRN #12 tab 08/28/18 5-325] Ibuprofen [Motrin] 600 mg PO Q8HR PRN #30 tab 08/28/18 Lidocaine 5% Patch [Lidoderm] 1 patch TOPICAL DAILY #5 patch 08/28/18 Allergies Allergy/AdvReac Type Severity Reaction Status Date / Time sulfamethoxazole AdvReac Nausea & Verified 08/28/18 14:29 [From Bactrim] Vomiting trimethoprim [From Bactrim] AdvReac Nausea & Verified 08/28/18 14:29 Vomiting Review of Systems ROS Statement: Those systems with pertinent positive or pertinent negative responses have been documented in the HPI. ROS Other: All systems not noted in ROS Statement are negative. Past Medical History Past Medical History: COPD, GERD/Reflux Additional Past Medical History / Comment(s): Other hx: herniated disc, recovered alcoholic. pt stated having diarrhea (like bile and at times mucousy) at times can goe up to 10 times a day" ibs History of Any Multi-Drug Resistant Organisms: None Reported Past Surgical History: Back Surgery, Orthopedic Surgery Additional Past Surgical History / Comment(s): 06/02/15 Far lateral lumbar laminectomy discectomy with METRX left L4-5. Other surgeries: arthroscopy knee, arthroscopy left shoulder x 2, right foot surg. rectal Past Anesthesia/Blood Transfusion Reactions: Previous Problems w/ Anesthesia Additional Past Anesthesia/Blood Transfusion Reaction / Comment(s): had difficulty breathing when coming out of anesthesia(TWICE) Past Psychological History: No Psychological Hx Reported Smoking Status: Current every day smoker Past Alcohol Use History: Daily Past Drug Use History: None Reported - Past Family History Mother Family Medical History: No Reported History Additional Family Medical History / Comment(s): Mother is healthy Father Family Medical History: No Reported History Additional Family Medical History / Comment(s): Father is healthy General Exam Limitations: no limitations General appearance: alert, in no apparent distress, other (This is a well- developed, well-nourished adult male patient in no acute distress. Vital signs upon presentation are temperature 98.4F, pulse 58, respirations 20, blood pressure 135/81, pulse ox 99% on room air.) Eye exam: Present: normal appearance, PERRL, EOMI. Absent: scleral icterus, conjunctival injection, periorbital swelling ENT exam: Present: normal exam, normal oropharynx, mucous membranes moist Respiratory exam: Present: normal lung sounds bilaterally, chest wall tenderness (Lower sternal and right posterior over the lower ribs.). Absent: respiratory distress, wheezes, rales, rhonchi, stridor Cardiovascular Exam: Present: regular rate, normal rhythm, normal heart sounds. Absent: systolic murmur, diastolic murmur, rubs, gallop, clicks GI/Abdominal exam: Present: soft, normal bowel sounds. Absent: distended, tenderness, guarding, rebound, rigid Back exam: Present: normal inspection. Absent: CVA tenderness (R), CVA tenderness (L) Neurological exam: Present: alert, oriented X3, CN II-XII intact Psychiatric exam: Present: normal affect, normal mood Skin exam: Present: warm, dry, intact, normal color. Absent: rash Course Vital Signs 08/28/18 08/28/18 14:26 16:55 Temperature 98.4 F Pulse Rate 58 L 76 Respiratory 20 18 Rate Blood Pressure 135/81 141/82 O2 Sat by Pulse 99 97 Oximetry Medical Decision Making - Medical Decision Making 43-year-old male patient presents to emergency department today for evaluation of right lower posterior rib pain after a fall one week ago. Physical examination did reveal point tenderness over ribs 9 and 10 on the right posterior chest wall. Vital signs are stable, patient is oxygenating well. X-rays of the right ribs and chest revealed no acute fractures however there was a small linear density on rib #10 which is concerning for nondisplaced rib fracture. Discuss findings and results with the patient. We discussed use of incentive spirometer, coughing, and deep breathing. He'll be given pain medication and Lidoderm patches for symptom relief. He is educated regarding splinting. He is instructed to follow-up with his primary care physician for recheck in 1-2 days. Return parameters discussed in detail. He verbalizes understanding and agrees with this plan. - Lab Data Lab Results 08/28/18 Range/Units 15:46 Urine Color Yellow Urine Appearance Clear (Clear) Urine pH 6.5 (5.0-8.0) Ur Specific [place] 1.022 (1.001-1.035) Urine Protein Negative (Negative) Urine Glucose (UA) Negative (Negative) Urine Ketones Negative (Negative) Urine Blood Negative (Negative) Urine Nitrite Negative (Negative) Urine Bilirubin Negative (Negative) Urine Urobilinogen <2.0 (<2.0) mg/dL Ur Leukocyte Esterase Negative (Negative) - Radiology Data Radiology results: report reviewed, image reviewed X-ray of the right ribs with one view chest. Report was reviewed in its entirety. Impression by Dr. Montilla shows no acute cardio pulmonary process. No acute displaced right-sided rib fractures are seen. Did review the image and nursing to be a linear density to rib #10 and the posterior aspect with patient is tender. Disposition Clinical Impression: Right rib fracture Disposition: HOME SELF-CARE Condition: Good Instructions (If sedation given, give patient instructions): How to Use an Incentive Spirometer (ED), Rib Fracture (ED) Additional Instructions: Take medications as directed. Follow-up with your primary care physician for recheck in 1-2 days. Perform coughing and deep breathing exercises 10 times an hour while awake. Return to the emergency department immediately for any new, worsening, or concerning symptoms. Prescriptions: Lidocaine 5% Patch [Lidoderm] 1 patch TOPICAL DAILY #5 patch Ibuprofen [Motrin] 600 mg PO Q8HR PRN #30 tab PRN Reason: Pain Hydrocodone/Acetaminophen [Amanda 5-325] 1 tab PO Q6HR PRN #12 tab PRN Reason: Pain Is patient prescribed a controlled substance at d/c from ED?: No Referrals: Dunia Crocker MD [Primary Care Provider] - 1-2 days Time of Disposition: 16:42
[2018-08-28 16:33] LABS: Appearance,Urine Clear (Clear); Bilirubin,Urine Negative (Negative); Blood,Urine Negative (Negative); Color,Urine Yellow; Glucose,Urine (UA) Negative (Negative); Ketones,Urine Negative (Negative); Leukocyte Esterase,Urine Negative (Negative); Nitrite,Urine Negative (Negative); PH, Urine 6.5 (5.0-8.0); Protein,Urine Negative (Negative); Specific Gravity,Urine 1.022 (1.001-1.035); Urobilinogen,Urine <2.0 mg/dL (<2.0)
[2018-08-28 17:00] VITALS: BP 141/82; PULSE 76; RESP 18
== END 2018-08-28 16:55 | disposition home or self-care (01) ==
LOC: EC 14:23
DX: S22.31XA Fracture of one rib, right side, initial encounter for closed fracture (principal); J44.9 Chronic obstructive pulmonary disease, unspecified; K21.9 Gastro-esophageal reflux disease without esophagitis; F17.200 Nicotine dependence, unspecified, uncomplicated; Z79.51 Long term (current) use of inhaled steroids; Z79.899 Other long term (current) drug therapy; Z87.898 Personal history of other specified conditions; Z98.890 Other specified postprocedural states; Z88.2 Allergy status to sulfonamides; W18.2XXA Fall in (into) shower or empty bathtub, initial encounter; Y92.89 Other specified places as the place of occurrence of the external cause
CPT/HCPCS: 81003; 71101; 99284; 96372; J1885